=== PATIENT | female | born 1995 | race Caucasian/White ===

== ENCOUNTER 2018-05-01 15:04 | Emergency (ER) | payer BC ==
[2018-05-01 15:52] VITALS: BP 109/57
--- NOTE | 2018-05-01 16:18 | UC ---
Throat Pain/Nasal Jim HPI - HPI Summary HPI Summary: Pt c/o nasal congestion, PND and cough in the morning. Pt is 15 weeks . Denies fever, chills, sinus pressure and pain - History of Current Complaint Chief Complaint: UCRespiratory Stated Complaint: SINUSES Time Seen by Provider: 05/01/18 16:13 Hx Obtained From: Patient Hx Last Menstrual Period: 01/19/18 ?: Yes Onset/Duration: Gradual Onset, Lasting Days, Still Present Severity: Moderate Pain Intensity: 8 Cough: Nonproductive Associated Signs & Symptoms: Positive: Other - PND - Epiglottits Risk Factors Epiglottis Risk Factors: Negative - Allergies/Home Medications Allergies/Adverse Reactions: Allergies Allergy/AdvReac Type Severity Reaction Status Date / Time metoclopramide [From Reglan] Allergy Severe Anaphylatic Verified 05/01/18 15:43 Shock scopolamine Allergy Severe Anaphylatic Verified 05/01/18 15:44 Shock sumatriptan [From Imitrex] Allergy Severe Anaphylatic Verified 05/01/18 15:43 Shock Home Medications: Home Medications Pnv No.95/Ferrous Fum/Folic AC [ Tablet] 1 tab PO DAILY 05/01/18 [ History Confirmed 05/01/18] PMH/Surg Hx/FS Hx/Imm Hx Previously Healthy: Yes - Surgical History Surgical History: Yes Surgery Procedure, Year, and Place: T&A. WISDOM TEETH EXTRACTIONS, LEFT KNEE SURGERY, CHOLYCYSTECTOMY, APPENDECTOMY - Family History Known Family History: Positive: Cardiac Disease - Social History Occupation: Employed Full-time Lives: With Family Alcohol Use: None Substance Use Type: None Smoking Status (MU): Never Smoked Tobacco Have You Smoked in the Last Year: No Review of Systems Constitutional: Negative Skin: Negative Eyes: Negative ENT: Sinus Congestion Respiratory: Cough Cardiovascular: Negative Gastrointestinal: Negative Genitourinary: Negative Motor: Negative Neurovascular: Negative Musculoskeletal: Negative Neurological: Negative Psychological: Negative Is Patient Immunocompromised?: No All Other Systems Reviewed And Are Negative: Yes Physical Exam Triage Information Reviewed: Yes Appearance: Well-Appearing Vital Signs: Initial Vital Signs Temp 97.8 F 05/01/18 15:45 Pulse 96 05/01/18 15:45 Resp 20 05/01/18 15:45 BP 109/57 05/01/18 15:45 Pulse Ox 100 05/01/18 15:45 Vital Signs Reviewed: Yes Eye Exam: Normal ENT Exam: Other ENT: Positive: Nasal congestion Dental Exam: Normal Neck exam: Normal Respiratory Exam: Normal Cardiovascular Exam: Normal Musculoskeletal Exam: Normal Neurological Exam: Normal Psychological Exam: Normal Skin Exam: Normal Throat Pain/Nasal Course/Dx - Differential Dx/Diagnosis Differential Diagnosis/HQI/PQRI: URI Provider Diagnoses: allergic rhinitis Discharge - Sign-Out/Discharge Documenting (check all that apply): Patient Departure - Discharge Plan Condition: Stable Disposition: HOME Prescriptions: Cetirizine* [ZyrTEC 10 MG TAB*] 10 mg PO DAILY #10 tab Patient Education Materials: Allergic Rhinitis (ED), Postnasal Drip (DC) Referrals: No Primary Care Phys,NOPCP [Primary Care Provider] - Additional Instructions: Please follow up with your [facility] provider, Dr. Savita Weathers or return to [facility] as needed. Per institutional requirements, I have reviewed the chart, however, I was not consulted specifically or made aware of this patient by the above midlevel provider. I did not personally evaluate, interact with , or disposition this patient. - Billing Disposition and Condition Condition: STABLE Disposition: Home
== END 2018-05-01 16:27 | disposition home or self-care (01) ==
LOC: UCCORT 15:04
DX: O26.892 Other specified pregnancy related conditions, second trimester (principal); Z3A.15 15 weeks gestation of pregnancy; J30.9 Allergic rhinitis, unspecified; Z88.8 Allergy status to other drugs, medicaments and biological substances
CPT/HCPCS: 99202; G0463

== ENCOUNTER 2018-05-06 15:43 | Emergency (ER) | payer BC ==
[2018-05-06 16:21] VITALS: BP 111/57
--- NOTE | 2018-05-06 16:50 | UC ---
UC General HPI - HPI Summary HPI Summary: pt is c/o severe sinus pressure and congestion with post nasal drip x 9 days with worsening. was seen 2 days into her s/s's and dx with allergies. she has been taking zyrtec as directed with no relief and again reports worsening. she denies fever, sneezing and itchy eyes. she is 15.5 weeks . - History of Current Complaint Chief Complaint: UCRespiratory Stated Complaint: SINUSES - RECHECK Time Seen by Provider: 05/06/18 16:39 Hx Obtained From: Patient Hx Last Menstrual Period: 01/19/18 Onset/Duration: Gradual Onset Timing: Constant Pain Intensity: 8 Alleviating: nothing Associated Signs & Symptoms: Positive: Cough. Negative: Fever - Allergy/Home Medications Allergies/Adverse Reactions: Allergies Allergy/AdvReac Type Severity Reaction Status Date / Time metoclopramide [From Reglan] Allergy Severe Anaphylatic Verified 05/06/18 16:22 Shock scopolamine Allergy Severe Anaphylatic Verified 05/06/18 16:22 Shock sumatriptan [From Imitrex] Allergy Severe Anaphylatic Verified 05/06/18 16:22 Shock PMH/Surg Hx/FS Hx/Imm Hx - Additional Past Medical History Additional PMH: 15.5 weeks Respiratory History: Asthma - Surgical History Surgical History: Yes Surgery Procedure, Year, and Place: T&A. WISDOM TEETH EXTRACTIONS, LEFT KNEE SURGERY, CHOLECYSTECTOMY, APPENDECTOMY - Family History Known Family History: Positive: Cardiac Disease - Social History Lives: With Family Alcohol Use: None Substance Use Type: None Smoking Status (MU): Never Smoked Tobacco Have You Smoked in the Last Year: No - Immunization History Vaccination Up to Date: Yes Review of Systems Constitutional: Negative Skin: Negative Eyes: Negative ENT: Nasal Discharge, Sinus Congestion, Sinus Pain/Tenderness Respiratory: Negative Cardiovascular: Negative Gastrointestinal: Negative Genitourinary: Negative Motor: Negative Neurovascular: Negative Musculoskeletal: Negative Neurological: Negative Psychological: Negative Is Patient Immunocompromised?: No All Other Systems Reviewed And Are Negative: Yes Physical Exam Triage Information Reviewed: Yes Appearance: Well-Appearing Vital Signs: Initial Vital Signs Temp 98.3 F 05/06/18 16:14 Pulse 104 05/06/18 16:14 Resp 20 05/06/18 16:14 BP 111/57 05/06/18 16:14 Pulse Ox 100 05/06/18 16:14 Eyes: Positive: Conjunctiva Clear ENT: Positive: Pharynx normal, Nasal congestion, TMs normal, Sinus tenderness - maxilla. Negative: Nasal drainage Neck: Positive: Supple, Nontender, No Lymphadenopathy Respiratory: Positive: Lungs clear, Normal breath sounds Cardiovascular: Positive: RRR, No Murmur Abdomen Description: Positive: Nontender, No Organomegaly, Soft Bowel Sounds: Positive: Present Musculoskeletal: Positive: ROM Intact Neurological: Positive: Alert Psychological: Positive: Age Appropriate Behavior Skin Exam: Normal Course/Dx - Course Course Of Treatment: pt will stop zyrtec as it has given her no improvement. she is now much worse thus will tx for sinusitis with amoxicillin. need for pcp d/w pt. she has ob care/ - Differential Dx - Multi-Symptom Provider Diagnoses: sinusitis Discharge - Sign-Out/Discharge Documenting (check all that apply): Patient Departure - Discharge Plan Condition: Stable Disposition: HOME Prescriptions: Amoxicillin PO (*) [Amoxicillin 875 MG (*)] 875 mg PO BID 10 Days #20 tab Patient Education Materials: Sinusitis (ED) Referrals: [facility] [place] PHYSICIAN REFERRAL [Outside] - 1 Day Additional Instructions: START YOUR RESCUE INHALER 2 PUFFS EVERY 6 HOURS NEEDED. CALL THE [facility] [place] [facility] IN AM WHO WILL HELP YOU FIND A PRIMARY CARE DOCTOR. YOU SHOULD FOLLOW UP IN 1 WEEK. FOLLOW UP WITH YOUR OB [facility] SCHEDULED FOR CARE. Per institutional requirements, I have reviewed the chart, however, I was not consulted specifically or made aware of this patient by the above midlevel provider. I did not personally evaluate, interact with , or disposition this patient. - Billing Disposition and Condition Condition: STABLE Disposition: Home
== END 2018-05-06 16:59 | disposition home or self-care (01) ==
LOC: UCCORT 15:43
DX: O26.892 Other specified pregnancy related conditions, second trimester (principal); Z3A.15 15 weeks gestation of pregnancy; J32.9 Chronic sinusitis, unspecified; Z88.8 Allergy status to other drugs, medicaments and biological substances
CPT/HCPCS: 99212; G0463

== ENCOUNTER 2018-06-24 13:00 | Emergency (ER) | payer BC ==
[2018-06-24 14:00] VITALS: BP 127/60
--- NOTE | 2018-06-24 14:39 | UC ---
Respiratory Complaint HPI - HPI Summary HPI Summary: 23-year-old woman coming in with a complaint of cough and chest congestion. Symptoms were going on for 3 weeks. She does have a history of asthma and has been using her inhalers with minimal relief. She is 22 weeks . She's been seen prior in an urgent care clinic. She is not yet been on antibiotics for this illness. She is feeling her baby move. No abdominal pain. - History of Current Complaint Chief Complaint: UCRespiratory Stated Complaint: UPPER RESPIRATORY SX,COUGH Time Seen by Provider: 06/24/18 14:27 Hx Last Menstrual Period: 01/19/18 Pain Intensity: 8 - Allergies/Home Medications Allergies/Adverse Reactions: Allergies Allergy/AdvReac Type Severity Reaction Status Date / Time metoclopramide [From Reglan] Allergy Severe Anaphylatic Verified 06/24/18 13:56 Shock scopolamine Allergy Severe Anaphylatic Verified 06/24/18 13:56 Shock sumatriptan [From Imitrex] Allergy Severe Anaphylatic Verified 06/24/18 13:56 Shock Home Medications: Home Medications Acetaminophen TAB* [Tylenol TAB*] 650 mg PO Q4H PRN 06/24/18 [History Confirmed 06/24/18] Albuterol 2.5MG/3ML (0.083%)* [Ventolin 2.5 MG/3 ML NEB.PRADIP*] 2.5 mg INH Q4H PRN 06/24/18 [History Confirmed 06/24/18] Albuterol HFA INHALER* [Ventolin HFA Inhaler*] 2 puff INH Q4H PRN 06/24/18 [ History Confirmed 06/24/18] PMH/Surg Hx/FS Hx/Imm Hx Previously Healthy: Yes - 22 WEEKS Respiratory History: Asthma - Surgical History Surgical History: Yes Surgery Procedure, Year, and Place: T&A. WISDOM TEETH EXTRACTIONS, LEFT KNEE SURGERY, CHOLECYSTECTOMY, APPENDECTOMY - Family History Known Family History: Positive: Cardiac Disease - Social History Alcohol Use: None Substance Use Type: None Smoking Status (MU): Never Smoked Tobacco Have You Smoked in the Last Year: No - Immunization History Vaccination Up to Date: Yes Review of Systems Constitutional: Negative Skin: Negative Eyes: Negative ENT: Nasal Discharge, Sinus Congestion Respiratory: Shortness Of Breath Cardiovascular: Negative Gastrointestinal: Negative Motor: Negative Neurovascular: Negative Musculoskeletal: Negative Neurological: Negative Psychological: Negative Is Patient Immunocompromised?: No All Other Systems Reviewed And Are Negative: Yes Physical Exam Triage Information Reviewed: Yes Appearance: Well-Appearing, No Pain Distress, Well-Nourished Vital Signs: Initial Vital Signs Temp 97.5 F 06/24/18 13:52 Pulse 117 06/24/18 13:52 Resp 20 06/24/18 13:52 BP 127/60 06/24/18 13:52 Pulse Ox 100 06/24/18 13:52 Vital Signs Reviewed: Yes Eye Exam: Normal ENT: Positive: Pharyngeal erythema, Nasal congestion, Nasal drainage Neck exam: Normal Neck: Positive: Supple, Nontender Respiratory: Positive: Normal breath sounds, No respiratory distress, No accessory muscle use, Other: - DRY COUGH Cardiovascular: Positive: Tachycardia Abdomen Description: Positive: Other: - GRAVID Musculoskeletal Exam: Normal Musculoskeletal: Positive: Strength Intact Neurological Exam: Normal Neurological: Positive: Alert Psychological Exam: Normal Skin Exam: Normal UC Diagnostic Evaluation - Laboratory O2 Sat by Pulse Oximetry: 100 Respiratory Course/Dx - Course Course Of Treatment: Patient's been having symptoms for 3 weeks. I will discuss the use of prednisone; at this time the patient does not want to be on prednisone because of being . We also discussed the chest x-ray but because of and her lungs are clear to examination will not be getting a chest x-ray today. The plan is to start on azithromycin and continue her breathing treatments. Follow-up with primary care doctor recheck sooner if worse. - Differential Dx/Diagnosis Provider Diagnoses: BRONCHITIS. ASTHMA Discharge - Sign-Out/Discharge Documenting (check all that apply): Patient Departure All imaging exams completed and their final reports reviewed: No Studies - Discharge Plan Condition: Stable Disposition: HOME Prescriptions: Azithromyxin FRANKLIN (NF) [Z-Franklin (Zithromax) 250 mg tabs #6] 2 tab PO .TODAY, THEN 1 DAILY #6 tab Patient Education Materials: Acute Bronchitis (ED), Asthma (ED) Referrals: [facility] [place] PH[facility]IAN REFERRAL [Outside] Additional Instructions: FOLLOW UP WITH YOUR DOCTOR IF NOT COMPLETELY IMPROVED. GET RECHECKED FOR ANY WORSENING OF YOUR CONDITION OR QUESTIONS OR CONCERNS. - Billing Disposition and Condition Condition: STABLE Disposition: Home - Attestation Statements Document Initiated by Malachi: Nata
== END 2018-06-24 14:43 | disposition home or self-care (01) ==
LOC: UCCORT 13:00
DX: O26.892 Other specified pregnancy related conditions, second trimester (principal); J40 Bronchitis, not specified as acute or chronic; J45.909 Unspecified asthma, uncomplicated; Z3A.22 22 weeks gestation of pregnancy; Z88.8 Allergy status to other drugs, medicaments and biological substances
CPT/HCPCS: 99212; G0463

== ENCOUNTER 2018-07-23 08:19 | Emergency (ER) | payer BC ==
[2018-07-23 08:41] VITALS: BP 111/63
--- NOTE | 2018-07-23 09:36 | UC ---
Throat Pain/Nasal Jim HPI - HPI Summary HPI Summary: 23-year-old woman coming in with a chief complaint of right sinus pressure. This all started last couple of days. She feels pain in her upper right teeth. She's had some rhinorrhea. This morning she had a bloody nose. She was able stop that by putting tissues in her right nostril. No bleeding at this time. No fevers or chills. 26 weeks . Recently had a diagnosis of sinusitis was treated with a azithromycin. - History of Current Complaint Chief Complaint: UCGeneralIllness Stated Complaint: SINUSES Time Seen by Provider: 07/23/18 09:18 Hx Last Menstrual Period: 01/19/18 Pain Intensity: 8 - Allergies/Home Medications Allergies/Adverse Reactions: Allergies Allergy/AdvReac Type Severity Reaction Status Date / Time metoclopramide [From Reglan] Allergy Severe Anaphylatic Verified 07/23/18 08:36 Shock scopolamine Allergy Severe Anaphylatic Verified 07/23/18 08:36 Shock sumatriptan [From Imitrex] Allergy Severe Anaphylatic Verified 07/23/18 08:36 Shock Home Medications: Home Medications Pantoprazole Sodium [Protonix] 20 mg PO DAILY 07/23/18 [History Confirmed ] PMH/Surg Hx/FS Hx/Imm Hx GI/ History: Gastroesophageal Reflux - Surgical History Surgical History: Yes Surgery Procedure, Year, and Place: T&A. WISDOM TEETH EXTRACTIONS, LEFT KNEE SURGERY, CHOLECYSTECTOMY, APPENDECTOMY - Family History Known Family History: Positive: Cardiac Disease, Diabetes - Social History Alcohol Use: None Substance Use Type: None Smoking Status (MU): Never Smoked Tobacco Have You Smoked in the Last Year: No - Immunization History Vaccination Up to Date: Yes Review of Systems Constitutional: Negative Skin: Negative Eyes: Negative ENT: Epistaxis, Nasal Discharge, Sinus Congestion, Sinus Pain/Tenderness Respiratory: Negative Cardiovascular: Negative Gastrointestinal: Negative Motor: Negative Neurovascular: Negative Musculoskeletal: Negative Neurological: Negative Psychological: Negative Is Patient Immunocompromised?: No All Other Systems Reviewed And Are Negative: Yes Physical Exam Triage Information Reviewed: Yes Appearance: Well-Appearing, No Pain Distress, Well-Nourished Vital Signs: Initial Vital Signs Temp 97.5 F 07/23/18 08:37 Pulse 99 07/23/18 08:37 Resp 16 07/23/18 08:37 BP 111/63 10/24/18 08:37 Pulse Ox 100 07/23/18 08:37 Vital Signs Reviewed: Yes Eye Exam: Normal Eyes: Positive: Conjunctiva Clear ENT: Positive: Pharyngeal erythema, Nasal congestion, Nasal drainage, TMs normal Neck exam: Normal Neck: Positive: Supple Respiratory: Positive: Lungs clear, Normal breath sounds, No respiratory distress Cardiovascular: Positive: RRR Musculoskeletal Exam: Normal Musculoskeletal: Positive: Strength Intact, ROM Intact Neurological Exam: Normal Neurological: Positive: Alert, Muscle Tone Normal Psychological Exam: Normal Psychological: Positive: Age Appropriate Behavior Skin Exam: Normal Throat Pain/Nasal Course/Dx - Differential Dx/Diagnosis Provider Diagnoses: SINUSITIS. EPISTAXIS Discharge - Sign-Out/Discharge Documenting (check all that apply): Patient Departure All imaging exams completed and their final reports reviewed: No Studies - Discharge Plan Condition: Stable Disposition: HOME Prescriptions: Amoxicillin/Clavulanate TAB* [Augmentin TAB 875*] 875 mg PO BID #20 tab Patient Education Materials: Sinusitis (ED), Nosebleed (ED) Forms: *School Release Referrals: [facility] [place] [facility]IAN REFERRAL [Outside] Additional Instructions: FOLLOW UP WITH YOUR DOCTOR IF NOT COMPLETELY IMPROVED. GET RECHECKED FOR ANY WORSENING OF YOUR CONDITION OR QUESTIONS OR CONCERNS. - Billing Disposition and Condition Condition: STABLE Disposition: Home
== END 2018-07-23 09:41 | disposition home or self-care (01) ==
LOC: UCCORT 08:19
DX: O99.89 Other specified diseases and conditions complicating pregnancy, childbirth and the puerperium (principal); J32.9 Chronic sinusitis, unspecified; R04.0 Epistaxis; K21.9 Gastro-esophageal reflux disease without esophagitis; Z88.8 Allergy status to other drugs, medicaments and biological substances; Z3A.26 26 weeks gestation of pregnancy
CPT/HCPCS: 99212; G0463

== ENCOUNTER 2018-09-08 10:05 | Emergency (ER) | payer BC ==
[2018-09-08] MEDS ORDERED: predniSONE TAB* 20 MG PO ONE (11:59)
[2018-09-08] MEDS ORDERED: Albuterol 2.5 MG/3 ML NEB.SOL* (0.083%) INH ONE (11:59)
--- NOTE | 2018-09-08 12:10 | ED ---
Respiratory - HPI Summary HPI Summary: 23 yr old female with a a history of exercise induced asthma and who is presently 33 weeks , presents with sinus pressure, post nasal drip, coughing productive of yellow sputum. She began to get ill about a week ago with runny nose, sore throat and has felt her sinuses get more pressure and congestion, and has felt the congestion move into her chest. She is having coughing spells. Her coughing spells are rather spasmodic and they are the most annoying feature of her acute illness. Symptoms are moderate. She has been using albuterol at home. - History of Current Complaint Chief Complaint: UCRespiratory Stated Complaint: COUGH,CONGESTION Time Seen by Provider: 09/08/18 11:54 Pain Intensity: 7 - Allergy/Home Medications Allergies/Adverse Reactions: Allergies Allergy/AdvReac Type Severity Reaction Status Date / Time metoclopramide [From Reglan] Allergy Severe Anaphylatic Verified 09/08/18 10:48 Shock scopolamine Allergy Severe Anaphylatic Verified 09/08/18 10:48 Shock sumatriptan [From Imitrex] Allergy Severe Anaphylatic Verified 09/08/18 10:48 Shock Home Medications: Home Medications Acetaminophen/Diphenhydramine [Tylenol Pm Ex-Strength Caplet] 1 each PO ONCE 07/17 [History Confirmed 09/08/18] Albuterol 2.5MG/3ML (0.083%)* [Ventolin 2.5 MG/3 ML NEB.PRADIP*] 2.5 mg INH Q4H PRN 09/08/18 [History Confirmed 09/08/18] guaiFENesin LIQ* [Robitussin*] 10 ml PO Q4H PRN 09/08/18 [History Confirmed 07/17] PMH/Surg Hx/FS Hx/Imm Hx Respiratory History: Reports: Hx Asthma - sports induced - Surgical History Surgery Procedure, Year, and Place: T&A. WISDOM TEETH EXTRACTIONS, LEFT KNEE SURGERY, CHOLECYSTECTOMY, APPENDECTOMY Infectious Disease History: No Infectious Disease History: Denies: Traveled Outside the [place] in Last 30 Days - Family History Known Family History: Positive: Cardiac Disease, Diabetes - Social History Alcohol Use: None Substance Use Type: Reports: None Smoking Status (MU): Never Smoked Tobacco Have You Smoked in the Last Year: No Review of Systems Positive: Sore Throat, Nasal Discharge, Other - sinus pressure and post nasal drip. Positive: Shortness Of Breath, Cough All Other Systems Reviewed And Are Negative: Yes Physical Exam Triage Information Reviewed: Yes Vital Signs On Initial Exam: Initial Vitals Temp Pulse Resp BP Pulse Ox 98.1 F 122 21 128/65 98 09/08/18 10:49 09/08/18 10:49 09/08/18 10:49 09/08/18 10:49 09/08/18 10:49 Vital Signs Reviewed: Yes Appearance: Positive: Well-Appearing, No Pain Distress Skin: Positive: Warm, Skin Color Reflects Adequate Perfusion Head/Face: Positive: Normal Head/Face Inspection ENT: Positive: Pharyngeal erythema, Nasal congestion, TMs normal. Negative: Muffled voice, Hoarse voice Neck: Positive: Nontender Respiratory/Lung Sounds: Positive: Clear to Auscultation, Breath Sounds Present , Other - she has spasmodic coughing episodes.. Negative: Stridor, Wheezes Cardiovascular: Positive: RRR. Negative: Murmur Abdomen Description: Positive: Nontender, Other: - gravid Musculoskeletal: Positive: Strength/ROM Intact Neurological: Positive: Sensory/Motor Intact, Alert, Oriented to Person Place, Time, CN Intact II-III, Normal Gait, Speech Normal Psychiatric: Positive: Normal - Vanessa Coma Scale Best Eye Response: 4 - Spontaneous Best Motor Response: 6 - Obeys Commands Best Verbal Response: 5 - Oriented Coma Scale Total: 15 Diagnostics - Vital Signs Vital Signs Temp Pulse Resp BP Pulse Ox 09/08/18 10:49 98.1 F 122 21 128/65 98 - Laboratory Lab Statement: Any lab studies that have been ordered have been reviewed, and results considered in the medical decision making process. - Radiology chest xray [facility] Radiology Interpretation Completed By: Radiologist - NAD Disposition - Course Course Of Treatment: 23 yr old female with acute bronchitis. Rx with prednisone , and she has an albuterol MDI at home which she will use. She knows to go to the hospital for any worsening symtpoms. - Diagnoses Provider Diagnoses: Acute asthmatic bronchitis Discharge - Sign-Out/Discharge Documenting (check all that apply): Patient Departure All imaging exams completed and their final reports reviewed: Yes - Discharge Plan Condition: Good Disposition: HOME Prescriptions: predniSONE TAB* [Deltasone 20 MG TAB*] 40 mg PO DAILY #8 tab Patient Education Materials: Acute Bronchitis (ED), Bronchospasm (ED) Referrals: No Primary Care Phys,NOPCP [Primary Care Provider] - 2 Days [facility] PHYSICIAN REFERRAL [Outside] - 2 Days Additional Instructions: use your albuterol MDI at home. Take the prednisone. Call your OB doctor for follow up in the next two days. - Billing Disposition and Condition Condition: GOOD Disposition: Home
[2018-09-08 13:22] VITALS: BP 121/65
== END 2018-09-08 13:22 | disposition home or self-care (01) ==
LOC: UCCORT 10:05
DX: J45.909 Unspecified asthma, uncomplicated (principal); O26.893 Other specified pregnancy related conditions, third trimester; Z3A.33 33 weeks gestation of pregnancy; Z88.8 Allergy status to other drugs, medicaments and biological substances
CPT/HCPCS: 71046; 99213; G0463; J7512

== ENCOUNTER 2019-10-21 18:29 | Emergency (ER) | payer BC, OTHER ==
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
--- OUTSIDE RECORDS SUMMARY | 2019-10-21 18:41 | XMS REPORT | Continuity of Care Document ---
:1995 Author Organization [facility] Address [address] [place] [address] Phone Care Team Providers Name Role Phone Serenity Kwan NP Unavailable Unavailable Allergies, Adverse Reactions, Alerts Substance Reaction Status doxycycline Active METOCLOPRAMIDE HCL Active scopolamine Active sumatriptan Active Medications Medication Instructions Dosage Effective Dates Status Comments (start - stop) Liletta 19.5 mcg/24 Insert IU - Active hour (4 years) intrauterine device ALBUTEROL INHALER Not Available - Active (unknown strength) PROTONIX (unknown Not Available - No Longer strength) Active Problems Condition Effective Dates (start - Clinical Status Comments stop) Encounter for routine checking of intrauterine contracep dev Sebaceous cyst Encounter for insertion of intrauterine contraceptive device Encounter for removal of intrauterine contraceptive device Encounter for test, result negative Human immunodeficiency virus [HIV] - counseling Encounter for insertion of intrauterine contraceptive device Procedures Procedure Date OFFICE/OUTPATIENT VISIT, EST VAG ETHAN, NON OTHER Medical Services 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 STI Results Test Name Date and Time Measure Units Reference Range Abnormal Flag Status Comments No information Advance Directives Directive Yes / No Effective Date File Name No information Encounters Encounter Practice Location Reason(s) Diagnoses Date Provider Providers Description For Visit Copied on Encounter OFFICE/OUTPA [facility] IUC Check, Encounter for White Referring TIENT VISIT, [facility] [place] Problem routine checking of Serenity. Provider: EST Of [facility] (chief intrauterine [address] [place], complaint) contracep [place], [address] [place] [address], [place], [id number], [address], [place], [address]. [place]. tel:[phone] [facility] Encounter for Freddy-0 Rogerio Referring [facility] [place] insertion of [address] Provider: Of [facility] intrauterine [address] [place], contraceptive [place] Rogerio J, [address], [address], [place] removal of [place], [address], [place], [place], [place]uterine [place], [place], [id number], contraceptive [address], [place], [address]. [place] device [place]. tel:[phone] tel:[phone] tel:[phone] [facility] Encounter for Mar-2 [facility] [place] test, Serenity. Of [facility] result [address] [place], negativeHuman [place] [address], St, [place] virus [HIV] [place], [place], [place], [place], [phone], [place] [id number], [place] intra[place]ine [place]. tel:[phone] contraceptive [phone] device Family History Family Member Diagnosis Age At Onset 1st degree relative No hx of coronary heart disease (female <65, male <55) 1st degree relative No hx of cancer of breast, colon, endometrium or ovary 1st degree relative No hx of venous thromboembolism 1st degree relative No hx of osteoporosis Immunizations Vaccine Date Status Comments No information Payers Payer name Insurance type Covered democrat ID Authorization(s) Edmundo FERNANDEZ [facility] CI [id number] Social History Type Description Quantity Date Captured Comments Alcohol Use Details Unknown Caffeine Use Details Unknown Tobacco Use Status Smoking Status Current every day smoker Sex Female Vital Signs Date / Height Weight BMI Pulse Blood Temperature Respiratory Body Head BMI Pulse Inhaled Time: Rate Pressure Rate Surface Circumference percentile Ox Ox Area No information Chief Complaint And Reason For Visit Most recent encounter only, dated '10/14/2019 09:30'. IUC Check, Problem (chief complaint) Reason For Referral Reason For Referral No information Plan Of Treatment Date Type Action Status No information History Of Present Illness Encounter Date Complaint History Of Present Illness No information Functional Status Date Functional Assessment No information Medications Administered Medication Instructions Dosage Effective Dates (start - stop) Status Comments No information Instructions Date Instruction Additional Information No information Assessments Type Assessment Date assessment Encounter for routine checking of intrauterine contracep dev assessment Sebaceous cyst Goals Health Concern Goal Type Priority Status Date No information Medical Equipment Description Device [place] Device Identifier Effective Dates (start - stop ) Status No information Mental Status Date Cognitive Assessment Normal Orientation Health Concerns Observation Date No information Concern Status Date No information
[2019-10-21 21:05] LABS: Urine Appearance Clear; Urine Bilirubin Negative (Negative); Urine Blood 2+ (Negative); Urine Color Yellow; Urine Glucose Negative (Negative); Urine Ketones 1+ (Negative); Urine Nitrite Negative (Negative); Urine Protein Negative (Negative); Urine Specific Gravity 1.023 (1.010-1.030); Urine Urobilinogen Negative (Negative)
[2019-10-21 21:10] LABS: Urine Bacteria 1+ (Absent); Urine Red Blood Cell Trace(0-2/hpf) (Absent); Urine Squamous Epithelial Cell Present (Absent); Urine White Blood Cell Trace(0-5/hpf) (Absent)
--- NOTE | 2019-10-21 23:44 | ED ---
Abdominal Pain/Female - HPI Summary HPI Summary: Pt is a 24 y/o F presenting to the ED with a chief complaint of RLQ abd pain initially onset 10/20/2019 in the morning and gradually worsening. [facility] couldnt see her until the middle of next month, and they found a cyst on her R ovary and recommended she come here. She reports associated nausea. She denies vomiting, diarrhea, or urinary sx. Hx ovarian cysts. - History of Current Complaint Chief Complaint: EDAbdPain Stated Complaint: OVARIAN CYST PER PT Time Seen by Provider: 10/21/19 23:39 Hx Obtained From: Patient Hx Last Menstrual Period: 01/19/18 Onset/Duration: Gradual Onset, Lasting Days, Still Present Timing: Constant Severity Initially: Mild Severity Currently: Severe Pain Intensity: 9 Pain Scale Used: 0-10 Numeric Location: Discrete At: RLQ Radiates: No Character: Cramping, Tearing Aggravating Factor(s): Nothing Alleviating Factor(s): Nothing Associated Signs and Symptoms: Positive: Nausea. Negative: Urinary Symptoms, Vomiting, Diarrhea Allergies/Adverse Reactions: Allergies Allergy/AdvReac Type Severity Reaction Status Date / Time metoclopramide [From Reglan] Allergy Severe Anaphylatic Verified 09/08/18 10:48 Shock scopolamine Allergy Severe Anaphylatic Verified 09/08/18 10:48 Shock sumatriptan [From Imitrex] Allergy Severe Anaphylatic Verified 09/08/18 10:48 Shock doxycycline Allergy Rash Verified 10/21/19 18:32 PMH/Surg Hx/FS Hx/Imm Hx Previously Healthy: Yes Endocrine/Hematology History: Denies: Hx Diabetes Respiratory History: Reports: Hx Asthma - sports induced History: Reports: Other Problems/Disorders - ovarian cysts - Surgical History Surgery Procedure, Year, and Place: T&A. WISDOM TEETH EXTRACTIONS, LEFT KNEE SURGERY, CHOLECYSTECTOMY, APPENDECTOMY Infectious Disease History: No Infectious Disease History: Denies: Traveled Outside the [place] in Last 30 Days - Family History Known Family History: Positive: Cardiac Disease, Diabetes - Social History Alcohol Use: None Hx Substance Use: No Substance Use Type: Reports: None Hx Tobacco Use: No Smoking Status (MU): Never Smoked Tobacco Have You Smoked in the Last Year: No Review of Systems Positive: Abdominal Pain, Nausea. Negative: Vomiting, Diarrhea Positive: no symptoms reported All Other Systems Reviewed And Are Negative: Yes Physical Exam - Summary Physical Exam Summary: Appearance: Well-appearing, Well-nourished, lying in bed comfortably Skin: Warm, dry, no obvious rash Eyes: sclera anicteric, no conjunctival pallor ENT: mucous membranes moist, pharynx appears normal Neck: Supple, nontender Respiratory: Clear to auscultation, no signs of respiratory distress Cardiovascular: Normal S1, S2. No murmurs. Normal distal pulses in tibial and radial bilaterally. Abdomen: RLQ tenderness without peritoneal signs, normal active bowel sounds present Musculoskeletal: Normal, Strength/ROM Intact Neurological: A&Ox3, awake and alert, mentation is normal, speech is fluent and appropriate Psychiatric: affect is normal, does not appear anxious or depressed Triage Information Reviewed: Yes Vital Signs On Initial Exam: Initial Vitals Temp Pulse Resp BP Pulse Ox 98.2 F 97 18 152/86 100 10/21/19 18:30 10/21/19 18:30 10/21/19 18:30 10/21/19 18:30 10/21/19 18:30 Vital Signs Reviewed: Yes Procedures - Sedation Patient Received Moderate/Deep Sedation with Procedure: No Diagnostics - Vital Signs Vital Signs Temp Pulse Resp BP Pulse Ox 10/21/19 20:45 98.6 F 88 16 124/80 100 10/21/19 18:30 98.2 F 97 18 152/86 100 - Laboratory Lab Results: Lab Results 10/21/19 Range/Units 20:30 Urine Color Yellow Urine Appearance Clear Urine pH 5.0 (5-9) Ur Specific [place] 1.023 (1.010-1.030) Urine Protein Negative (Negative) Urine Ketones 1+ A (Negative) Urine Blood 2+ A (Negative) Urine Nitrate Negative (Negative) Urine Bilirubin Negative (Negative) Urine Urobilinogen Negative (Negative) Ur Leukocyte Esterase Negative (Negative) Urine WBC (Auto) Trace(0-5/hpf) (Absent) Urine RBC (Auto) Trace(0-2/hpf) (Absent) Ur Squamous Epith Cells Present A (Absent) Urine Bacteria 1+ A (Absent) Urine Glucose Negative (Negative) Result Diagrams: 10/21/19 23:40 10/21/19 23:40 Lab Statement: Any lab studies that have been ordered have been reviewed, and results considered in the medical decision making process. - Ultrasound Transvaginal US Ultrasound Interpretation Completed By: Radiologist Summary of Ultrasound Findings: No definite acute pathology. Large irregular right ovarian cyst (2.7 cm avg. size) (perhaps an involuting cyst). Multiple small bilateral ovarian follicles. No evidence of ovarian torsion. IUD in place. No solid pelvic mass. Large amount of pelvic fluid -- perhaps secondary to ovarian cyst rupture or leakage. ED physician has reviewed this report. Abdominal Pain Fem Course/Dx - Course Course Of Treatment: Pt is a 24 y/o F presenting to the ED with a chief complaint of RLQ abd pain initially onset 10/20/2019 in the morning and gradually worsening. [facility] couldnt see her until the middle of next month, and they found a cyst on her R ovary and recommended she come here. She reports associated nausea. She denies vomiting, diarrhea, or urinary sx. Hx ovarian cysts. On exam, there is RLQ tenderness without peritoneal signs. Transvaginal US shows: No definite acute pathology. Large irregular right ovarian cyst (2.7 cm avg. size) (perhaps an involuting cyst). Multiple small bilateral ovarian follicles. No evidence of ovarian torsion. IUD in place. No solid pelvic mass. Large amount of pelvic fluid -- perhaps secondary to ovarian cyst rupture or leakage. I spoke with Dr. Conley at 0011 who agrees that the pt is stable to follow up outpatient. Dx will be ruptured ovarian cyst. Pt stable and agreeable w/ f/u. - Diagnoses Provider Diagnoses: Ruptured ovarian cyst Discharge ED - Sign-Out/Discharge Documenting (check all that apply): Patient Departure - Discharge Plan Condition: Good Disposition: HOME Prescriptions: oxyCODONE/Acetamin 5/325 MG* [Percocet 5/325 TAB*] 1 tab PO Q4H PRN #10 tab MDD 4 PRN Reason: Pain - Severe Patient Education Materials: Ruptured Ovarian Cyst (ED) Referrals: Ayd Conley MD [Medical Doctor] - 2 Days Additional Instructions: The pain is being caused by fluid leaking from a cyst on the right ovary. This should heal on its own with time, and does not require any surgery. My expectation is the pain should gradually improve over the next couple of days. I do not expect you to worsen, but if the pain abruptly worsens, especially if you start to feel light headed or dizzy, we should see you back sooner. Otherwise you can followup at your gynecology office. - Billing Disposition and Condition Condition: GOOD Disposition: Home - Attestation Statements Document Initiated by Malachi: Yes Documenting Scribe: Sheree Mackenzie Provider For Whom Malachi is Documenting (Include Credential): Anmol Klein MD. Scribe Attestation: ISheree, nellyed for Anmol Klein MD. on 10/22/19 at 1910. Scribe Documentation Reviewed: Yes Provider Attestation: The documentation as recorded by the pelonibe, Sheree Mackenzie accurately reflects the service I personally performed and the decisions made by me, Anmol Klein MD. Status of Scribe Document: Viewed
[2019-10-21 23:57] LABS: ABS Eosinophils 0.1 10^3/ul (0-0.6); ABS Lymphocytes 2.2 10^3/ul (1.0-4.8); ABS Monocytes 0.5 10^3/ul (0-0.8); ABS Neutrophils 5.1 10^3/ul (1.5-7.7); Eosinophil % 0.6 %; Hematocrit 42 % (35-47); Hemoglobin 14.6 g/dL (12.0-16.0); Lymphocyte % 27.1 %; Mean Corpuscular HGB Conc 34 g/dL (31-36); Mean Corpuscular Hemoglobin 32 pg (27-31); Mean Corpuscular Volume 92 fL (80-97); Mean Platelet Volume 8.9 fL (7.4-10.4); Nucleated Red Blood Cells % 0.1; Platelet Count 256 10^3/uL (150-450); Red Blood Count 4.59 10^6 /uL (3.70-4.87); Red Cell Distribution Width 14 % (10-15); White Blood Count 7.9 10^3/uL (3.5-10.8)
[2019-10-22 00:01] LABS: INR 1.03 (0.82-1.09)
[2019-10-22] MEDS ORDERED: oxyCODONE/Acetamin 5/325 MG* TAB PO ONE (00:08)
[2019-10-22 00:15] LABS: ALT 13 U/L (7-52); AST 18 U/L (13-39); Albumin 4.6 g/dL (3.2-5.2); Albumin/Globulin Ratio 1.8 (1-3); Alkaline Phosphatase 64 U/L (34-104); Anion Gap 6 mmol/L (2-11); BUN/Creatinine Ratio 17.1 (8-20); Blood Urea Nitrogen 13 mg/dL (6-24); CO2 Carbon Dioxide 26 mmol/L (22-32); Chloride 105 mmol/L (101-111); EGFR African American 112.2 (>60); EGFR Non-African American 92.7 (>60); Globulin 2.5 g/dL (2-4); Glucose 137 mg/dL (70-100); Potassium 3.5 mmol/L (3.5-5.0); Sodium 137 mmol/L (135-145); Total Protein 7.1 g/dL (6.4-8.9)
[2019-10-22 00:22] LABS: HCG Pregnancy < 0.60 mIU/mL
[2019-10-22 01:29] VITALS: BP 122/78
== END 2019-10-22 00:40 | disposition home or self-care (01) ==
LOC: ED 18:29
DX: N83.201 Unspecified ovarian cyst, right side (principal); Z88.1 Allergy status to other antibiotic agents; Z88.8 Allergy status to other drugs, medicaments and biological substances
CPT/HCPCS: 36415; 76830; 80053; 81003; 81015; 84702; 85025; 85610; 86850; 86900; 86901; 87086; 99283; A9270-GY

== ENCOUNTER 2021-02-28 12:07 | Inpatient (IN) ==
[2021-02-28] MEDS ORDERED: Lactated Ringers 1000 ml BAG 1,000 ML IV ONE ×2 (12:45→21:24)
[2021-02-28] MEDS ORDERED: Buffered Lidocaine 1% SYRIN 1 ml INTRADERM ONE (12:45)
[2021-02-28] MEDS ORDERED: Oxytocin in LR 20 UNITS/1,000 ML BAG IVPB SCH (13:00)
[2021-02-28] MEDS ORDERED: Lactated Ringers 1000 ml BAG 1,000 ML IV SCH ×2 (13:00→22:00)
[2021-02-28 13:53] LABS: ABS Lymphocytes 1.3 10^3/ul (1.0-4.8); ABS Monocytes 0.5 10^3/ul (0-0.8); ABS Neutrophils 6.3 10^3/ul (1.5-7.7); Eosinophil % 0.4 %; Hematocrit 30 % (35-47); Mean Corpuscular HGB Conc 33 g/dL (31-36); Mean Corpuscular Hemoglobin 28 pg (27-31); Mean Corpuscular Volume 85 fL (80-97); Mean Platelet Volume 9.5 fL (7.4-10.4); Nucleated Red Blood Cells % 0.1; Platelet Count 197 10^3/uL (150-450); Red Blood Count 3.56 10^6 /uL (3.70-4.87); Red Cell Distribution Width 16 % (10-15); White Blood Count 8.2 10^3/uL (3.5-10.8)
[2021-02-28 14:11] LABS: Urine Benzodiazepine Screen None Detected (None Detect); Urine Cannabinoids Screen None Detected (None Detect); Urine Opiates Screen None Detected (None Detect)
[2021-02-28] MEDS ORDERED: fentaNYL 100 mcg/2 ml 50 MCG/ML VIAL IV SLOW PU ONE (19:06)
[2021-02-28] MEDS ORDERED: OBEPIDURAL 250 ML EPIDURAL ONE (20:25)
[2021-02-28] MEDS ORDERED: Sodium Citrate/Citric Acid LIQ 15 ML UDC PO PRN (21:24)
[2021-02-28] MEDS ORDERED: Phenylephrine 40 mcg/mL 10mL (400mcg) SYRINGE IV PUSH PRN ×2 (21:24)
[2021-02-28] MEDS ORDERED: OBEPIDURAL 250 ML EPIDURAL SCH (22:00)
[2021-02-28 22:50] LABS: Urine Appearance Clear; Urine Bilirubin Negative (Negative); Urine Blood Negative (Negative); Urine Color Straw; Urine Glucose Negative (Negative); Urine Ketones Negative (Negative); Urine Nitrite Negative (Negative); Urine Protein Negative (Negative); Urine Specific Gravity 1.006 (1.002-1.030); Urine Urobilinogen Negative (Negative)
[2021-03-01] MEDS ORDERED: Methylergonovine 0.2 mg AMPULE 1 ml AMP IM ONE (03:46)
[2021-03-01] MEDS ORDERED: Dibucaine 1% OINT 28.35 GM TUBE PR PRN (03:46)
[2021-03-01] MEDS ORDERED: Glycerin ADULT 2.4 gm SUPP PR PRN (03:46)
[2021-03-01] MEDS ORDERED: Witch Hazel PAD JAR TOPICAL PRN (03:46)
[2021-03-01] MEDS ORDERED: Oxytocin in LR 20 UNITS/1,000 ML BAG IVPB SCH (04:00)
[2021-03-01] MEDS ORDERED: Lactated Ringers 1000 ml BAG 1,000 ML IV SCH (04:00)
[2021-03-01 04:53] LABS: ABS Monocytes 1.1 10^3/ul (0-0.8); Hematocrit 25 % (35-47); Hemoglobin 8.2 g/dL (12.0-16.0); Lymphocyte % 6.4 %; Mean Corpuscular HGB Conc 33 g/dL (31-36); Mean Corpuscular Hemoglobin 28 pg (27-31); Mean Corpuscular Volume 86 fL (80-97); Mean Platelet Volume 9.2 fL (7.4-10.4); Platelet Count 139 10^3/uL (150-450); Red Blood Count 2.94 10^6 /uL (3.70-4.87); Red Cell Distribution Width 16 % (10-15); White Blood Count 15.1 10^3/uL (3.5-10.8)
[2021-03-01] MEDS ORDERED: Ondansetron 4 mg VIAL 2 MG/ML 2 ml VIAL IV ONE (05:18)
[2021-03-01] MEDS ORDERED: Varicella Virus Vaccine Live 0.5 ML VIAL SUBCUT ONE (09:00)
[2021-03-01 18:01] LABS: ABS Basophils 0.1 10^3/ul (0-0.2); ABS Eosinophils 0.1 10^3/ul (0-0.6); ABS Lymphocytes 1.5 10^3/ul (1.0-4.8); ABS Monocytes 1.3 10^3/ul (0-0.8); ABS Neutrophils 11.4 10^3/ul (1.5-7.7); Eosinophil % 0.6 %; Hematocrit 30 % (35-47); Hemoglobin 10.2 g/dL (12.0-16.0); Lymphocyte % 10.2 %; Mean Corpuscular HGB Conc 34 g/dL (31-36); Mean Corpuscular Hemoglobin 29 pg (27-31); Mean Corpuscular Volume 85 fL (80-97); Mean Platelet Volume 9.2 fL (7.4-10.4); Platelet Count 188 10^3/uL (150-450); Red Blood Count 3.52 10^6 /uL (3.70-4.87); Red Cell Distribution Width 16 % (10-15); White Blood Count 14.3 10^3/uL (3.5-10.8)
[2021-03-02 06:55] LABS: ABS Basophils 0.1 10^3/ul (0-0.2); ABS Eosinophils 0.2 10^3/ul (0-0.6); ABS Lymphocytes 2.1 10^3/ul (1.0-4.8); ABS Monocytes 1.1 10^3/ul (0-0.8); ABS Neutrophils 10.4 10^3/ul (1.5-7.7); Eosinophil % 1.1 %; Hematocrit 27 % (35-47); Hemoglobin 9.3 g/dL (12.0-16.0); Mean Corpuscular HGB Conc 34 g/dL (31-36); Mean Corpuscular Hemoglobin 29 pg (27-31); Mean Corpuscular Volume 84 fL (80-97); Mean Platelet Volume 9.4 fL (7.4-10.4); Platelet Count 176 10^3/uL (150-450); Red Blood Count 3.24 10^6 /uL (3.70-4.87); Red Cell Distribution Width 16 % (10-15); White Blood Count 13.7 10^3/uL (3.5-10.8)
[2021-03-02 08:10] VITALS: BP 138/82
[2021-03-02] MEDS ORDERED: Measles, Mumps,Rubella VACC 0.5 ML/VIAL SUBCUT ONE (09:00)
== END 2021-03-02 13:20 | disposition home or self-care (01) | DRG 560 ==
LOC: MCHOBOUT 12:07 → MCHOB 12:55
PROVIDERS: ADMIT Midwife; ATTEND Midwife